=== PATIENT | male | born 1950 | race Caucasian/White ===

== ENCOUNTER 2018-07-31 09:49 | Outpatient (CLI) | payer MEDICARE, SELFPAY ==
[2018-07-31 12:58] LABS: CREATININE 0.89 mg/dL (0.70-1.30); Glucose 107 mg/dL (70-100); Potassium 4.1 mmol/L (3.5-5.1)
[2018-08-01 08:52] LABS: PSA, Screening 1.3 ng/ml (0-4.5)
== END 2018-07-31 10:09 ==
PROVIDERS: PCP Family Medicine; Visit Provider Family Medicine
DX: E11.9 Type 2 diabetes mellitus without complications (principal); Z12.5 Encounter for screening for malignant neoplasm of prostate; I10 Essential (primary) hypertension
CPT/HCPCS: 36415; 82947; 84153; 82565; 84132

== ENCOUNTER 2018-10-04 12:13 | Outpatient (CLI) | payer MEDICARE, SELFPAY ==
--- NOTE | 2018-10-04 10:55 | DI.RAD_ITS ---
SYMPTOMS/DIAGNOSIS: RT HIP PAIN RIGHT HIP AND PELVIS: Two views were obtained. There is virtually complete loss of the cartilaginous joint space of the right hip with marked subchondral sclerosis and cyst formation and marked deformity of the acetabulum and femoral head. Prominent osteophyte formation noted. CONCLUSION: Severe DJD right hip. Left hip prosthesis noted in position.
== END 2018-10-04 12:33 ==
PROVIDERS: PCP Family Medicine; Visit Provider Orthopaedic Surgery
DX: M16.11 Unilateral primary osteoarthritis, right hip; Z96.642 Presence of left artificial hip joint; Z47.1 Aftercare following joint replacement surgery
CPT/HCPCS: 99212; 99213; 73502

== ENCOUNTER 2019-09-12 02:22 | Outpatient (CLI) | payer MEDICARE, SELFPAY ==
[2019-09-12 11:36] LABS: CREATININE 1.02 mg/dL (0.70-1.30); Calculated LDL 117 mg/dL; Cholesterol 181 mg/dL (<200); Glucose 101 mg/dL (74-106); HDL Cholesterol 30 mg/dL (40-60); Potassium 4.2 mmol/L (3.5-5.1); Triglyceride 174 mg/dL (<150)
== END 2019-09-12 02:42 ==
PROVIDERS: PCP Family Medicine; Visit Provider Family Medicine
DX: I10 Essential (primary) hypertension (principal); E74.39 Other disorders of intestinal carbohydrate absorption; E66.3 Overweight
CPT/HCPCS: 36415; 80061; 82947; 82565; 84132

== ENCOUNTER 2020-09-21 04:36 | Outpatient (CLI) | payer MEDICARE, SELFPAY ==
[2020-09-21 12:33] LABS: Glucose 119 mg/dL (74-106); Potassium 4.3 mmol/L (3.5-5.1)
== END 2020-09-21 04:56 ==
PROVIDERS: PCP Family Medicine; Visit Provider Family Medicine
DX: I10 Essential (primary) hypertension (principal); R73.9 Hyperglycemia, unspecified
CPT/HCPCS: 36415; 80061; 82947; 82565; 84132

== ENCOUNTER 2020-09-25 19:15 | Outpatient (REF) | payer MEDICARE, SELFPAY ==
[2020-09-25 19:36] LABS: Calculated LDL 119 mg/dL (<100); Cholesterol 204 mg/dL (<200); HDL Cholesterol 35 mg/dL (40-60); Triglyceride 250 mg/dL (<150)
== END 2020-09-25 19:16 | disposition home or self-care (01) ==
LOC: LBN 19:15
PROVIDERS: PCP Family Medicine; Visit Provider Family Medicine
DX: I10 Essential (primary) hypertension (principal); E78.5 Hyperlipidemia, unspecified
CPT/HCPCS: 80061

== ENCOUNTER → 2021-03-25 11:03 | Outpatient (BNVA) | payer MEDICARE, SELFPAY | PROVIDERS: PCP Family Medicine; Referring Provider Family Medicine; Visit Provider Student in an Organized Health Care Education/Training Program | DX: M25.551 Pain in right hip (principal); M16.11 Unilateral primary osteoarthritis, right hip | CPT/HCPCS: 99213 ==

== ENCOUNTER → 2021-05-31 12:50 | Outpatient (BNVA) | payer MEDICARE, SELFPAY | PROVIDERS: PCP Family Medicine; Referring Provider Family Medicine; Visit Provider Urology | DX: N50.89 Other specified disorders of the male genital organs (principal) | CPT/HCPCS: 99204; 99214 ==

== ENCOUNTER 2021-06-15 11:53 | Outpatient (CLI) | payer MEDICARE, SELFPAY ==
--- NOTE | 2021-06-15 11:00 | DI.RAD_ITS ---
Exam(s) XR HIP RT COMPLETE AP PELVIS EXAM: XR HIP RT COMPLETE AP PELVIS INDICATION: pre op R ROSETTA. COMPARISON: CR XR hip RT complete AP pelvis from 10/04/2018 TECHNIQUE: 2D digital imaging was performed. FINDINGS: There is severe narrowing of the superior right hip joint space. There is significant flattening of the femoral head. Subchondral cysts are noted on both sides of the joint. The findings have signif icantly worsened when compared the previous exam. The left total hip prosthesis is unremarkable and unchanged. IMPRESSION: End-stage degenerative changes of the right hip. DATA REPOSITORY: RADIATION DOSE DELIVERED:
== END 2021-06-15 11:54 | disposition home or self-care (01) ==
LOC: DIORS 11:53
PROVIDERS: PCP Family Medicine; Referring Provider Family Medicine; Visit Provider Physician Assistant
DX: M16.11 Unilateral primary osteoarthritis, right hip (principal); Z01.818 Encounter for other preprocedural examination
CPT/HCPCS: 73502

== ENCOUNTER 2021-06-21 02:17 | Outpatient (CLI) | payer MEDICARE, SELFPAY ==
[2021-06-21 12:03] LABS: Source Nasal/Nares
[2021-06-21 12:06] LABS: HCT 46.3 % (40.0-50.0); HGB 15.7 g/dL (13.5-17.5); MCH 29.9 pg (27.0-33.0); MCHC 33.9 % (32.0-36.0); MCV 88.2 fL (80-95); MPV 9.5 fL (8.0-11.0); Platelet Count 252 10^3/uL (130-400); RBC 5.25 10^6/uL (4.36-5.78); RDW 12.9 % (11.8-14.1); RDW-SD 41.7 fL; WBC 8.36 10^3/uL (4.4-10.8)
[2021-06-21 13:01] LABS: Anion Gap 9.7 mmol/L (3-11); BUN 24 mg/dL (7-18); CO2 26.3 mmol/L (21.0-32.0); CREATININE 1.1 mg/dL (0.70-1.30); Calcium 10.5 mg/dL (8.5-10.1); Chloride 108 mmol/L (98-107); Glucose 104 mg/dL (74-106); Sodium 144 mmol/L (136-145)
[2021-06-21 20:34] LABS: COVID-19 PCR Negative (Negative)
== END 2021-06-21 02:18 | disposition home or self-care (01) ==
LOC: LBO 02:17
PROVIDERS: PCP Family Medicine; Visit Provider Student in an Organized Health Care Education/Training Program
DX: Z20.822 Contact with and (suspected) exposure to COVID-19 (principal); M16.11 Unilateral primary osteoarthritis, right hip; Z01.818 Encounter for other preprocedural examination
CPT/HCPCS: 36415; 80048; 85027; 86850; 86900; 86901; 87635

== ENCOUNTER 2021-06-22 07:33 | Day surgery (SDC) | payer MEDICARE, SELFPAY ==
[2021-06-22] VITALS (10 sets, daily range): BP systolic 97–168; BP diastolic 50–95; PULSE 54–81; RESP 12–19; TEMP 36.1–36.6; O2SAT 93–97; BMI 35.9
--- NOTE | 2021-06-22 05:29 | ANES.PREOP_ITS ---
General Info Date of Service Date Performed: 06/22/21 Height: 5 ft 10.75 in Weight: 116.12 kg Body Mass Index (BMI): 35.9 Surgical Procedure: Operation Date: 06/22/21 09:05 Proposed Procedures Side Surgeon p Hip Total Hip Anterior Right Andriy Sorenson MD Meds Allergies and Home Medications Allergies Allergy/AdvReac Type Severity Reaction Status Date / Time hydrochlorothiazide AdvReac Intermediate low Verified 06/22/21 07:55 sodium; faint Home Medication Medication Instructions Recorded salmon oil-omega-3 fatty acids 1 ea PO DAILY 01/17/13 [[place] Oil 1,000 Mg Softgel] dimenhydrinate [Dramamine] 25 - 50 mg PO PRN PRN 07/01/13 loratadine 10 mg PO PRN tab-cap 07/01/15 garlic 2 cap PO DAILY cap 07/25/18 amlodipine 5 mg tablet 5 mg PO BID #180 tab-cap 08/04/20 lisinopril 40 mg tablet 40 mg PO DAILY #90 tab-cap 08/04/20 acetaminophen 500 mg PO Q6H PRN #60 tab 06/22/21 aspirin 81 mg PO BID 30 Days #60 tab 06/22/21 celecoxib [Celebrex] 200 mg PO BID #30 cap 06/22/21 docusate sodium [Colace] 100 mg PO BID #30 cap 06/22/21 oxycodone 5 mg PO Q6H PRN #12 tab 06/22/21 pantoprazole 40 mg PO DAILY 30 Days #30 tab 06/22/21 Current Visit Medications: Current Medications Generic Name Dose Route Start Last Admin Trade Name Freq PRN Reason Stop Dose Admin Acetaminophen 1,000 mg 06/22/21 06:00 Acetaminophen 500 Mg Tab PO 06/22/21 16:00 PREOP GURU Celecoxib 400 mg 06/22/21 06:00 Celecoxib 200 Mg Cap PO 06/22/21 16:00 PREOP GURU Tranexamic Acid 1,000 mg/ 60 mls @ 360 mls/hr 06/22/21 06:00 Sodium Chloride IV 06/22/21 16:00 PREOP GURU Ringer's Solution 1,000 mls @ 80 mls/hr 06/22/21 06:00 IV 07/21/21 23:59 INFUSION GURU Cefazolin Sodium/Dextrose 2 gm in 50 mls @ 100 mls/hr 06/22/21 06:00 Ancef Duplex IVPB 07/21/21 23:59 PREOP GURU IV Miscellaneous Supplies 1 each 06/22/21 06:00 Iv Access IV 07/21/21 23:59 DIRECTED GURU Sodium Chloride 0 ml 06/22/21 06:00 Normal Saline Flush 10 Ml Syr IV 07/21/21 23:59 PRN PRN Sodium Chloride 0 ml 06/22/21 06:00 Normal Saline 10 Ml Vial IJ 07/21/21 23:59 DIRECTED PRN Sterile Water 0 ml 06/22/21 06:00 Water,Injection,Sterile 10 Ml Vial IJ 07/21/21 23:59 DIRECTED PRN PFSH Active Problems Active Problems: Problem Status Onset Code Status post arthroscopy of right knee Z98.890 Scrotal sac enlargement N50.89 Degenerative joint disease of right hip M16.11 Status post total hip replacement, left Z96.642 Overweight E66.3 Glucose intolerance E74.39 Vitreous floaters 06/03/13 H43.399 Shoulder pain M25.519 Right ureteral stone 07/17/17 N20.1 Polyp of colon K63.5 Migraine 07/20/04 G43.909 Bilateral kidney stones 07/17/17 N20.0 Allergic rhinitis J30.9 Benign hypertension I10 Hypercholesterolemia E78.0 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 05/17/13 T18.108A Medical History Medical History (Updated 06/22/21 @ 08:15 by Cortney Acevedo) H/O multiple concussions Hx of hydrocele left Internal hemorrhoids with other complication Patient denies diagnosis Pneumonia of left lower lobe due to infectious organism Rectal hemorrhage Patient denies diagnosis Surgical History Surgical History Appendectomy Colonoscopy - [facility] (11/02/11) DR. RODRIGUEZ Kidney Stone Extraction 07/20/17 RIGHT WITH STENTING PROCEDURES Achilles tendon tear x 2 with surgery Left Status post arthroscopy of right knee medial meniscus tear Tonsillectomy and adenoidectomy Total replacement of hip LEFT Tobacco Smoking/Tobacco Use Status: Never Passive smoking exposure: Yes Second hand exposure: Yes Alcohol Alcohol Intake: current Alcohol intake frequency: a few times a month Alcohol type: beer Substance Use Substance use: Never Substance use type: does not use Vital Signs and Lab Results Vital Signs Most Recent Vital Signs in EMR: Temp Pulse Resp BP Pulse Ox 36.6 C 81 18 168/95 H 96 06/22/21 08:08 06/22/21 08:08 06/22/21 08:08 06/22/21 08:08 06/22/21 08:08 Lab Results Blood Type / Crossmatch: Patient ABO/Rh A Positive 06/21/21 11:50 06/21/21 Antibody Screen NEGATIVE 06/21/21 11:50 06/21/21 Complete Blood Count: White Blood Count 8.36 10^3/uL (4.4-10.8) 06/21/21 11:50 06/21/21 Red Blood Count 5.25 10^6/uL (4.36-5.78) 06/21/21 11:50 06/21/21 Hemoglobin 15.7 g/dL (13.5-17.5) 06/21/21 11:50 06/21/21 Hematocrit 46.3 % (40.0-50.0) 06/21/21 11:50 06/21/21 Platelet Count 252 10^3/uL (130-400) 06/21/21 11:50 06/21/21 Complete Metabolic Panel: Sodium Level 144 mmol/L (136-145) 06/21/21 11:50 06/21/21 Potassium Level 4.0 mmol/L (3.5-5.1) 06/21/21 11:50 06/21/21 Chloride Level 108 mmol/L (98-107) H 06/21/21 11:50 06/21/21 Carbon Dioxide Level 26.3 mmol/L (21.0-32.0) 06/21/21 11:50 06/21/21 Blood Urea Nitrogen 24 mg/dL (7-18) H 06/21/21 11:50 06/21/21 Creatinine 1.1 mg/dL (0.70-1.30) 06/21/21 11:50 06/21/21 Estimated GFR/1.73 m2 >= 60.00 (mL/min/1.73m2) 06/21/21 11:50 06/21/21 Calcium Level 10.5 mg/dL (8.5-10.1) H 06/21/21 11:50 06/21/21 Glucose Level 104 mg/dL (74-106) 06/21/21 11:50 06/21/21 Liver Function Panel: No Data to Display Coagulation Panel: No Data to Display Cardiac Panel: No Data to Display Arterial Blood Gas: No Data to Display Venous Blood Gas: No Data to Display Pancreas Panel: No Data to Display Thyroid Panel: No Data to Display Infectious Disease: Coronavirus (COVID-19)(PCR) Negative (Negative) 06/21/21 11:23 06/21/21 Coronavirus 2019 Source Nasal/Nares 06/21/21 11:23 06/21/21 Blood Cultures: No Data to Display Toxicology Panel: No Data to Display Imaging and Studies Imaging and Studies Stress Test Summary: 2009: negative for ischemia. Anesthesia Assessment and Plan Anesthesia History Personal History: No History of Anesthesia Complications Family History: No Family History of Anesthesia Complications Exercise Tolerance Exercise Tolerance: Metabolic Equivalents>4 Cardiac & Pulmonary Exam Cardiac Exam: Normal S1/S2 Heart Sounds Pulmonary Exam: Clear Bilateral Breath Sounds Airway Exam Known Difficult Airway: No Mallampati Class: 2 Mouth Opening: Normal (> 3cm) Thyromental Distance: Greater than 3 cm Neck Range of Motion: Full ROM Neck Circumference: Thick Teeth Condition: Normal Dentition ASA Classification ASA Score: ASA 2 Emergency Case?: No NPO Status NPO Status: NPO Clears >2 hours, Solids >8 hours Anesthesia Plan Resuscitation Status: Full Code Anesthesia Technique: Spinal Anesthesia Airway Planned: Natural Airway Monitors Used: Standard Monitors Preoperative Comments:: 70 yo male for right ROSETTA. Sig PMHx: HTN (lisinopril/amlodipine), never smoker, occ EtOH. Previous Anes: LMA 5.
--- NOTE | 2021-06-22 07:16 | DSE_ITS ---
Documented by User: Justina Garibayxon 06/22/21 07:20 DS: Diagnosis Discharge Diagnosis (1) Degenerative joint disease of right hip: Status: Chronic Discharge Plan Disposition Patient Disposition: HOME Condition: Good Discharge Details Reason For Visit: Right hip DJD Attending Provider: Andriy Sorenson Primary Care Provider: Saul Carl Home Meds and New Rx's Prescriptions: New celecoxib [Celebrex] 200 mg capsule 200 mg PO BID Qty: 30 RF: 0 aspirin 81 mg tablet,delayed release (DR/EC) 81 mg PO BID 30 Days Qty: 60 RF: 0 acetaminophen 500 mg tablet 500 mg PO Q6H PRN (Reason: pain) Qty: 60 RF: 2 pantoprazole 40 mg tablet,delayed release (DR/EC) 40 mg PO DAILY 30 Days Qty: 30 RF: 0 docusate sodium [Colace] 100 mg capsule 100 mg PO BID Qty: 30 RF: 0 oxycodone 5 mg tablet 5 mg PO Q6H PRN (Reason: severe post-operative pain) Qty: 12 RF: 0 Continued [place] Oil-1000 1 EACH capsule 1 ea PO DAILY RF: 0 loratadine 10 MG tablet 10 mg PO PRN RF: 0 garlic capsule 2 cap PO DAILY RF: 0 amlodipine 5 mg tablet 5 mg PO BID Qty: 180 RF: 3 lisinopril 40 mg tablet 40 mg PO DAILY Qty: 90 RF: 4 Dramamine 25 MG tablet,chewable 25 - 50 mg PO PRN PRNRF: 0 Discontinued acetaminophen [Tylenol] 325 MG tablet 325 - 650 mg PO PRN RF: 0 ibuprofen [Motrin IB] 200 MG tablet 1 - 2 tab PO DAILY RF: 0 aspirin [Lo-Dose Aspirin] 81 mg tablet,delayed release (DR/EC) 162 mg PO DAILY RF: 0 Discharge Instructions Additional Instructions: Total Hip Discharge Instructions Activity: The most important activity is to walk. You should try to take short walks a few times a day. You have no restrictions on movement or positioning, but do not try to force what you do. You will find some stiffness and weakness with hip flexion (lifting your knee). Do not try to strengthen this too early, continue to practice walking and stairs and this will come. - Outpatient physical therapy can be helpful to help return you to a normal gait and improve your flexibility and strength. This can start around 2 weeks. For some patients, it?s not necessary. Usually this is determined at the time of discharge or at the first post-operative visit. - You should wear the CHRISTI hose on both legs for 2 weeks. Dressing: Keep the surgical dressing in place for at least one week. After the first week it may be removed and replace with light gauze and tape or nothing. It may get wet after 3 days but avoid soaking the dressing. If it gets wet, just lightly pat dry. It is important to always keep some gauze between skin folds, especially when you are sitting. Spend some time with the wound exposed when you are lying flat as the incision does wrinkle onto itself. Medications: - You should take Tylenol and an anti-inflammatory Celebrex as your primary pain control medications. If the Celebrex is too expensive or not covered, please call the office for another alternative (Advil/Ibuprofen or Naproxen/Aleve). - You have been prescribed a stronger pain medication Oxycodone for breakthrough pain, take as needed as prescribed. - You have also been prescribed a stomach acid reduction agent Pantoprozole to help reduce stomach acid and reflux. - You will be taking Aspirin 81mg twice a day for DVT prevention unless instructed otherwise. - If you have constipation you should take Colace (which has been prescribed) or Miralax (which may be purchased [id number]). It takes most people 3-4 days to have a bowel movement. Follow-up: 2 weeks If you have any acute concerns or questions, please do not hesitate to contact the office at [phone]. You may contact Dr. Sorenson with any questions after hours through the hospital at [phone] or on his cell phone at [phone]. Referrals: Andriy Sorenson MD [ [facility] STAFF PHYSICIAN] - Equipment/Supplies: Walker Activity:: Activity as Tolerated Remove Dressings/Wound Care:: Do Not Remove Shower/Bathe:: Cover Diet:: As Tolerated Discharge Orders Discharge Orders: Discharge Order (Routine); Ordered 06/22/21 Ordered By: Andriy Sorenson DS: Data Vitals/I&O Vitals and I&O: Intake & Output 06/21/21 06/21/21 06/22/21 11:59 23:59 11:59 Weight 116.12 kg 116.12 kg [facility] Medical History (Updated 06/22/21 @ 08:15 by Cortney Acevedo) H/O multiple concussions Hx of hydrocele left Internal hemorrhoids with other complication Patient denies diagnosis Pneumonia of left lower lobe due to infectious organism Rectal hemorrhage Patient denies diagnosis Surgical History Appendectomy [place] [facility] [place] DR. RODRIGUEZ Kidney Stone Extraction 07/20/17 RIGHT WITH STENTING PROCEDURES Achilles tendon tear x 2 with surgery Left Status post arthroscopy of right knee medial meniscus tear Tonsillectomy and adenoidectomy Total replacement of hip LEFT Family History (Updated 08/12/20 @ 09:15 by Lenka Ragsdale) Mother , AGE 79 Diabetes Essential hypertension Hyperlipidemia Stroke Skin cancer Father , AGE 82 Essential hypertension Heart disease Hyperlipidemia Stroke Sister No problems noted. Sister No problems noted. Brother Essential hypertension Brother Depression Alcohol abuse Brain cancer Stroke Son No problems noted. Son No problems noted. Daughter No problems noted. Daughter No problems noted. Daughter No problems noted. Daughter No problems noted. 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 animals: Yes Pets and animals: cat(s) Sexually active: Yes Do you think of yourself as: straight/heterosexual Current gender identity: male What is your relationship status?: How often do you talk on the phone with friends or family?: three or more times per week How often do you get together with friends or relatives?: twice per week How often do you attend confucianism or episcopal services?: 4 or more times per year Do you belong to any clubs or organized social groups?: yes Panel score (0-1 are the most socially isolated patients): 4 What type of physical activity do you participate in: walking and weight lifting Duration: 45-60 minutes/day Frequency: daily Thelma/Gnosticist: Druze Special thelma needs: No Seatbelt use: always Drive intox or ride w/intox commercial relief driver: No Do you feel safe at home: Yes Do you feel safe in your relationship?: Yes Victim of physical abuse: No Victim of emotional abuse: No Victim of sexual abuse: No Would you like helpful sources: No Documented by User: Andriy Soernson MD 06/22/21 13:58 Date of service: 06/22/21 Time of Service: 13:57 Discharge Plan Disposition Patient Disposition: HOME Condition: Good Discharge Details Reason For Visit: Right hip DJD Attending Provider: Andriy Sorenson Primary Care Provider: Saul Carl Home Meds and New Rx's Prescriptions: New celecoxib [Celebrex] 200 mg capsule 200 mg PO BID Qty: 30 RF: 0 aspirin 81 mg tablet,delayed release (DR/EC) 81 mg PO BID 30 Days Qty: 60 RF: 0 acetaminophen 500 mg tablet 500 mg PO Q6H PRN (Reason: pain) Qty: 60 RF: 2 pantoprazole 40 mg tablet,delayed release (DR/EC) 40 mg PO DAILY 30 Days Qty: 30 RF: 0 docusate sodium [Colace] 100 mg capsule 100 mg PO BID Qty: 30 RF: 0 oxycodone 5 mg tablet 5 mg PO Q6H PRN (Reason: severe post-operative pain) Qty: 12 RF: 0 Continued [place] Oil-1000 1 EACH capsule 1 ea PO DAILY RF: 0 loratadine 10 MG tablet 10 mg PO PRN RF: 0 garlic capsule 2 cap PO DAILY RF: 0 amlodipine 5 mg tablet 5 mg PO BID Qty: 180 RF: 3 lisinopril 40 mg tablet 40 mg PO DAILY Qty: 90 RF: 4 Dramamine 25 MG tablet,chewable 25 - 50 mg PO PRN PRNRF: 0 Discontinued acetaminophen [Tylenol] 325 MG tablet 325 - 650 mg PO PRN RF: 0 ibuprofen [Motrin IB] 200 MG tablet 1 - 2 tab PO DAILY RF: 0 aspirin [Lo-Dose Aspirin] 81 mg tablet,delayed release (DR/EC) 162 mg PO DAILY RF: 0 Discharge Instructions Additional Instructions: Total Hip Discharge Instructions Activity: The most important activity is to walk. You should try to take short walks a few times a day. You have no restrictions on movement or positioning, but do not try to force what you do. You will find some stiffness and weakness with hip flexion (lifting your knee). Do not try to strengthen this too early, continue to practice walking and stairs and this will come. - Outpatient physical therapy can be helpful to help return you to a normal gait and improve your flexibility and strength. This can start around 2 weeks. For some patients, it?s not necessary. Usually this is determined at the time of discharge or at the first post-operative visit. - You should wear the CHRISTI hose on both legs for 2 weeks. Dressing: Keep the surgical dressing in place for at least one week. After the first week it may be removed and replace with light gauze and tape or nothing. It may get wet after 3 days but avoid soaking the dressing. If it gets wet, just lightly pat dry. It is important to always keep some gauze between skin folds, especially when you are sitting. Spend some time with the wound exposed when you are lying flat as the incision does wrinkle onto itself. Medications: - You should take Tylenol and an anti-inflammatory Celebrex as your primary pain control medications. If the Celebrex is too expensive or not covered, please call the office for another alternative (Advil/Ibuprofen or Naproxen/Aleve). - You have been prescribed a stronger pain medication Oxycodone for breakthrough pain, take as needed as prescribed. - You have also been prescribed a stomach acid reduction agent Pantoprozole to help reduce stomach acid and reflux. - You will be taking Aspirin 81mg twice a day for DVT prevention unless instructed otherwise. - If you have constipation you should take Colace (which has been prescribed) or Miralax (which may be purchased [id number]). It takes most people 3-4 days to have a bowel movement. Follow-up: 2 weeks If you have any acute concerns or questions, please do not hesitate to contact the office at [phone]. You may contact Dr. Sorenson with any questions after hours through the hospital at [phone] or on his cell phone at [phone]. Referrals: Andriy Sorenson MD [ [facility] STAFF PHYSICIAN] - Equipment/Supplies: Walker Activity:: Activity as Tolerated Remove Dressings/Wound Care:: Do Not Remove Shower/Bathe:: Cover Diet:: As Tolerated Discharge Orders Discharge Orders: Discharge Order (Routine); Ordered 06/22/21 Ordered By: Andriy Sorenson DS: Summary Time Spent with Patient providing and/or coordinating discharge services: Less than 30 minutes Status at Discharge Functional status at discharge: uses cane/walker Overall status at discharge: patient is progressing back to baseline Mental Status: mental status grossly normal Speech and Movement: speech and movement normal Mood: congruent mood Affect: normal affect Exam Psych Mental Status: mental status grossly normal Speech and Movement: speech and movement normal Mood: congruent mood Affect: normal affect [facility] Medical History (Updated 06/22/21 @ 08:15 by Cortney Acevedo) H/O multiple concussions Hx of hydrocele left Internal hemorrhoids with other complication Patient denies diagnosis Pneumonia of left lower lobe due to infectious organism Rectal hemorrhage Patient denies diagnosis Surgical History Appendectomy Colonoscopy - [facility] (11/02/11) DR. RODRIGUEZ Kidney Stone Extraction 07/20/17 RIGHT WITH STENTING PROCEDURES Achilles tendon tear x 2 with surgery Left Status post arthroscopy of right knee medial meniscus tear Tonsillectomy and adenoidectomy Total replacement of hip LEFT Family History (Updated 08/12/20 @ 09:15 by Lenka Ragsdale) Mother , AGE 79 Diabetes Essential hypertension Hyperlipidemia Stroke Skin cancer Father , AGE 82 Essential hypertension Heart disease Hyperlipidemia Stroke Sister No problems noted. Sister No problems noted. Brother Essential hypertension Brother Depression Alcohol abuse Brain cancer Stroke Son No problems noted. Son No problems noted. Daughter No problems noted. Daughter No problems noted. Daughter No problems noted. Daughter No problems noted. 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 animals: Yes Pets and animals: cat(s) Sexually active: Yes Do you think of yourself as: straight/heterosexual Current gender identity: male What is your relationship status?: How often do you talk on the phone with friends or family?: three or more times per week How often do you get together with friends or relatives?: twice per week How often do you attend confucianism or episcopal services?: 4 or more times per year Do you belong to any clubs or organized social groups?: yes Panel score (0-1 are the most socially isolated patients): 4 What type of physical activity do you participate in: walking and weight lifting Duration: 45-60 minutes/day Frequency: daily Thelma/Gnosticist: Druze Special thelma needs: No Seatbelt use: always Drive intox or ride w/intox commercial relief driver: No Do you feel safe at home: Yes Do you feel safe in your relationship?: Yes Victim of physical abuse: No Victim of emotional abuse: No Victim of sexual abuse: No Would you like helpful sources: No
[2021-06-22] MEDS: Celecoxib 200 MG CAP 400 MG PO (08:06)
[2021-06-22] MEDS: Acetaminophen 500 MG TAB 1000 MG PO (08:06)
[2021-06-22] MEDS: Lactated Ringers 1,000 ML 80 ML IV (08:20)
--- NOTE | 2021-06-22 08:45 | RT.EKG_ITS ---
APPROVED REPORT Exam: Resting ECG Reason for Exam: preop eval, lightheaded Patient Location: O HR:67 bpm ECG Measurements Heart Rate 67 AXIS NM 181 P 18 QRSd 93 QRS -2 QT 417 T 56 QTc 441 Conclusion Sinus rhythm...normal P axis, V-rate 60- 99 Normal Electrocardiogram
[2021-06-22] MEDS: ceFAZolin 2 GM/50 ML BAG IVPB (09:23)
--- NOTE | 2021-06-22 09:25 | NUR.NOTE ---
0857: Call syeda maharaj. Nursing in room, pt lying on stretcher with eyes closed saying it the pain meds on an empty stomach. Spouse saying he needs help. Pt. diaphoretic and saying it started in his eyes. Vitals taken: BP 98/58, HR 52. HOB lowered, cool clothes and air provided. Pt. asked to open eyes, reports everything is clear and he does not feel dizzy. Pt. stating i dont have any pain. Ronaldo Joyce CRNA, in room. 3 lead applied. 12 lead EKG ordered. 0855: vitals: BP 114/75, HR 65, 98%, pt. reports he is feeling better. EKG done by Cortez ACEVEDO. Ronaldo Joyce CRNA in room. Per [employer]ACHINE TENDER EKG is good. aware and okay with proceeding with surgery. 0905: Vitals: BP 130/72, Hr 70, 98%. Pt. wiped down with warm clothes and changed out of sweaty gown. Pt. states he feels better. Pt. taken to OR.Nursing Note:
[2021-06-22] MEDS: Bupivacaine 0.25% Pres-Free 30 ML VIAL (09:58)
[2021-06-22] MEDS: Ketorolac 30 MG/ML VIAL (09:59)
--- NOTE | 2021-06-22 10:45 | DI.RAD_ITS ---
Exam(s) XR HIP RT IN OR EXAM: XR HIP RT IN OR CLINICAL HISTORY: djd right hip TECHNIQUE: 2D and realtime digital imaging was performed. COMPARISON: No exams were available for comparison FINDINGS: C-arm fluoroscopy was utilized by Dr. Sorenson during placement of right hip prosthesis. Hard copy s how femoral and acetabular components in good position. IMPRESSION: RADIATION DOSE DELIVERED: nadine Santos=6.3 mGy
--- NOTE | 2021-06-22 11:03 | W.PM.OP ---
Date of service: 06/22/21 Time of Service: 11:03 Operative Note Operative Note DATE OF PROCEDURE: 06/22/21 PRE-OP DIAGNOSIS: Right Hip Osteoarthritis POST-OP DIAGNOSIS: same PROCEDURE: Right Anterior Total Hip Arthroplasty with Intraoperative navigation SURGEON: Andriy Sorenson FACULTY CRIMINAL JUSTICE: Justina Chacon ANESTHESIA TYPE: Spinal Refer to Anesthesia Record ESTIMATED BLOOD LOSS: 250 PATHOLOGY: none sent TOURNIQUET TIME: 0 COMPLICATIONS: None Patient was transported to: PACU Patient's condition: stable Implants: 1. Depuy Datto Acetabular Component, 56mm 2. Depuy Acetabular Liner, 40l99ar 3. Depuy Corail Standard Collared Femoral Stem, Size 13 4. Depuy Altrx Ceramic Femoral Head, Size 36+8.5mm Indications: I have seen Abhijit in clinic for symptoms of hip arthritis, confirmed with radiographic findings. He has exhausted nonoperative methods and was having significant limitations in daily function and desired better function and less pain. I discussed the technical details of a hip replacement. I explained the risks of the procedure to include, but not limited to, bleeding, infection, pain, stiffness, fracture, damage to nerves and vessels, damage to muscles and tendons, loosening, instability, leg length inequality, need for repeat procedure, blood clot and cardiopulmonary demise. Despite these risks, Abhijit elected to proceed. Findings: There was significant signs of arthritis throughout the hip with femoral neck osteophytes and femoral head deformity. Procedure Description: Abhijit was greeted in the preoperative holding area where the correct side was identified and marked. The consent was reviewed with the patient and signed. The history and physical was updated. All questions were answered. Abhijit was taken back to the operating room. A spinal anesthestic was then administered. The feet were wrapped with cast padding and Coban and then placed into the boot liners and then into the boots. Care was taken to protect the skin and make sure the heels were fully down and the boots were stable. The patient was then positioned onto the HANA table. Both legs were held in a neutral position. SCDs were applied. The patient was then slid down onto a peroneal post. Prophylactic antibiotics in the form of Cefazolin were administered. 1g of Tranxemic Acid was given intravenously within 30 minutes of incision. The right leg was then prepped with Chloraprep and draped in a standard fashion. A second prep with Chloraprep was performed prior to placement of a shower-curtain type drape with Iodine impregnated skin protection. A timeout to confirm correct identity, side and site, procedure, allergies, anesthesia, and medical concerns was performed. An obliquely oriented incision was made starting lateral to the ASIS and running distal over the Tensor Fascia Ashley (TFL) muscle belly toward the fibular head, approximately 10cm. The skin and soft tissue was dissected sharply, through Manuel?s fascia, and to the fascia of the TFL. With the fascia and superior border of the IT band identified, the fascia was incised with a new knife just above any perforators from the IT band. The TFL muscle belly was bluntly dissected away from the fascia and moved laterally. The fat between TFL and rectus was identified to ensure the dissection was not within the TFL. Blunt dissection created space between abductors and the capsule and retractor was placed over the lateral femoral neck. The fibers of the rectus femoris tendon were identified and these were freed from the anterior capsule. A second cobra retractor was placed around the medial femoral neck. The TFL was further retracted laterally to show the deep fascia. Careful dissection through this layer identified three main crossing vessels of the lateral femoral circumflex. These were cauterized in multiple locations and then cut without any noticeable bleeding. The TFL was further released bluntly from the deep fascia to expose anterior hip capsule and fat The Travis orthopaedic retractor was then placed beneath the TFL and against sartorius and medial soft tissues to protect and retract the soft tissues. A T-capsulotomy was then performed starting at the superior lateral acetabulum and moving distally to the intertrochanteric ridge. These capsular flaps were tagged with a No. 1 Ethibond and elevated from within. The capsular flaps were released to the shoulder of the lateral neck and to the lesser trochanter to give excellent visualization of the proximal femur. A neck osteotomy was performed using an oscillating saw based on preoperative templates after clearing away femoral neck osteophytes. This cut started in the shoulder and of the lateral neck and exited medially. The saw was at all times directed medially to avoid injury to the greater trochanter. Gross traction was applied to the leg and the osteotomy opened. The femoral head was removed with a corkscrew, making sure to protect the TFL on its exit. Traction was released after head removal. This was measured on the back table to determine the starting reamer size. The femoral head had notable deformity and complete loss of cartilage. Portions of the rectus obscuring visualization were minimally elevated off the superior acetabulum. An anterior retractor was placed over the anterior wall between capsule and labrum and attached to the Gripper retraction system. The femur was rotated to 90 degrees and medial capsule was fully released until the lesser trochanter was palpable and visible; the femur was returned to 30 degrees. A posterior retractor was placed similarly between capsule and labrum. This provided excellent visualization. The contents of the cotyloid fossa were removed with electrocautery and the labrum was removed with a knife. There was a notable floor osteophyte. There was significant chondromalacia of the superior acetabulum. Acetabular reaming began with a 53mm reamer. This first reaming was directed anterior to posterior and medial to get down to the true floor. This was inspected and reamed until the true floor was reached. The anterior retractor was then released and entry and exit was provided by traction on the capsular flaps. I then reamed sequentially up to a 56mm reamer where good fit was obtained. The larger reamers were oriented based on anatomical reference of the anterior and lateral hernández to ensure proper abduction and anteversion. Positioning and size was confirmed with the fluoroscopy. A 56mm Depuy Datto acetabular component was selected. The acetabulum was reamed around the periphery with the selected acetabular size to prevent a rim fit. The deep tissues were irrigated. The acetabular component was then impacted in a position of about 40-45 degrees of abduction and 15-20 degrees of anteversion, using the patient?s anatomy as the ultimate landmark. Fluoroscopy was used to confirm this. There was excellent folder taper operator of the acetabular component and the inserting handle was removed. The acetabular liner, Depuy [id number] polyethylene liner, was inserted and lined up with the tines of the acetabular component. There was no soft tissue interposition. The liner was then impacted into position and confirmed to be well-seated. A portion of the nikolai-articular cocktail was then injected around the acetabulum into the capsule and periosteum. This cocktail consisted of 50cc of 0.25% Bupivicaine and 20cc of Exparel and 30mg of Ketorolac. The leg was rotated to 120 degrees. Any remaining medial capsule was released until the lesser trochanter was easily palpable. A retractor was placed medially. The lateral capsule was further released into the shoulder to allow access to the greater trochanter. A Caban retractor was placed over the greater trochanter which allowed the trochanter to flip in front of the capsule for excellent exposure. The leg was brought down into maximal extension and 20 degrees of adduction while ensuring there was no impingement on the acetabulum. Any remnant capsule within the trochanter was released. Piriformis and obturator externis were identified and protected. There was excellent access to the proximal femur. The lateral neck remnant was removed with a rongeur. A blunt canal probe was used to identify the canal and trajectory for later broaching. A box osteotome initiated the broach course. A small curved rasp and a curved curette were used to work laterally. Broaching then began with a size 8 Corail broach. This was inserted manually around the trochanter and into the canal before mallet blows. The broach was seated to a few millimeters below the cut level based on the neck cut and the preoperative template. Sequential broaching was continued with the [employer] pneumatic broaching device until a tight fit was obtained with good rotational control of the femur. A trial standard neck was inserted along with a +5 trial head. The leg was brought out of extension and adduction and then reduced with traction and internal rotation. The leg was stable anteriorly in a position of 30 degrees of extension and 90 degrees of external rotation. Fluoroscopy was used to ensure there was no fracture and the stem was seated well. Leg lengths were checked with an AP pelvis and pelvic reference points. Bottlenose navigation system was used to confirm appropriate positioning and leg length and offset. This seemed to underrecreate the offset by a few millimeters, so I went up to the +8.5mm head option. Once content with the desired offset and leg lengths, the leg was brought back into extension, external rotation and adduction. The periosteum and surrounding tissue was injected with remaining portion of the nikolai-articular cocktail. The proximal femur was irrigated as well as the deep tissues. The Depuy Corail standard collared stem, size 13, was then manually inserted into the proximal femur making sure to control rotation. It was then malleted into position with light blows, giving breaks to allow bone expansion and decrease risk of fracture. The selected Depuy Altrx Ceramic Head, size 36+8.5mm, was then placed onto the clean and dry trunnion and secured with impaction onto the tapered fit. The leg was brought back out of extension and adduction and reduced with traction and internal rotation. Stability was confirmed with no shuck at 90 degrees of external rotation and 30 degrees of extension. No impingement through range of motion arc. Final x-ray images were obtained with fluoroscopy to confirm adequate positioning and no intraoperative fracture. The deep tissues were thoroughly irrigated with Irrisept chlorhexadine solution. The capsule was then reapproximated with the previously placed Ethibond sutures. The TFL fascia was finally closed with a No. 2 Stratafix, barbed suture. Deep tissues were then reapproximated with 0 Vicryl and a running 2-0 Vicryl. The skin was closed with a running 4-0 Monocryl in a subcuticular fashion. This was reinforced with skin glue. A Mepilex silver dressing was applied. At the end of the case, all counts were correct. Abhijit was transferred to the hospital bed without difficulty and suffering no apparent complication. Abhijit has a good prognosis. Physical therapy will start today and without restrictions, weight-bearing as tolerated. Aspirin 81mg BID will be used for DVT prophylaxis.
[2021-06-22] MEDS: Normal Saline 10 ML VIAL IJ (11:40)
[2021-06-22] MEDS: HYDROmorphone 2 MG/ML VIAL IVP (11:40)
--- NOTE | 2021-06-22 12:15 | W.ANESPOSTOP ---
Postoperative Evaluation Date, Time and Location Date Performed: 06/22/21 Time Performed: 12:15 Patient Location: PACU Vital Signs Most Recent Imported Vital Signs: Most Recent Vital Signs Temp Pulse Resp BP Pulse Ox 36.5 C 55 L 12 101/83 96 06/22/21 12:00 06/22/21 12:00 06/22/21 12:00 06/22/21 12:00 06/22/21 12:00 Pain Score Most Recent Pain Score: Most Recent Pain Score Pain Level [Right Hip] 3 06/22/21 07:59 Pain Level 4 06/22/21 12:00 Assessment Mental Status: Awake (Alert & Oriented to Patient Baseline) Airway and Respiratory Function: Patent airway with normal (patient baseline) respiratory exam Cardiovascular Function: Hemodynamically Stable Hydration Status: Adequately Hydrated Nausea & Vomiting: No Nausea or Vomiting Pain: Pt. Denies Any Pain Peripheral Nerve Block: Patient did not receive a nerve block Postoperative Comments:: Discussed the need to intubate as related to his post nasal drip/coughing.
--- NOTE | 2021-06-22 14:48 | IN_ITS ---
Date of service: 06/22/21 Time of Service: 14:00 PT Notes Visit Reasons: Right hip DJD Inpatient Physical Therapy Evaluation Date: 06/22/21 Referring Doctor: Andriy Sorenson PT Orders: PT CONSULT: Evaluate Precautions: Standard Patient Profile/Admitting Diagnosis: Orders received for this 70 year old male with history of OA. He underwent successful ROSETTA earlier today with delivery by anterior approach. Goals for today are to establish new baseline safety for home discharge today. He was a little pre syncope according to nursing upon recovery and in PACU. Appears to be doing well now, and is looking forward to home soon. PMHX: Medical History (Updated 06/15/21 @ 11:22 by Justina Chacon) Internal hemorrhoids with other complication Patient denies diagnosis Pneumonia of left lower lobe due to infectious organism Rectal hemorrhage Patient denies diagnosis Surgical History (Updated 06/15/21 @ 11:22 by Justina Chacon) Appendectomy Colonoscopy - MAC (11/02/11) DR. RODRIGUEZ Kidney Stone Extraction 07/20/17 RIGHT WITH STENTING PROCEDURES Achilles tendon tear x 2 with surgery Left Status post arthroscopy of right knee medial meniscus tear Tonsillectomy and adenoidectomy Total replacement of hip LEFT Social History/Home Situation: Patient lives with his in a single floor home. He does require two steps to enter the home Equipment Owned/DME: 2[employer] Subjective: Patient states he is feeling okay Objective: Patient sitting up in bed, no medical lines in place Mental Status: Well oriented and alert to person, place and time Pain: Minimal but a little foggy from the anesthesia ROM: Right Upper Extremity: WNL Left Upper Extremity: WNL Right Lower Extremity: WFL Left Lower Extremity: WFL Strength: Right Upper Extremity: 5/5 globally Left Upper Extremity: 5/5 globally Right Lower Extremity: 4+/5 globally Left Lower Extremity: 5/5 globally Bed Mobility/Transfers: Supervision Supine-sit: Supervision Sit-stand: Supervision Stand-sit: Supervision Gait: Patient ambulates up to 75 feet with 2WW and CGA He also stands to urinate in the toilet with CGA Patient negotiates 2 steps with appropriate gait pattern and single step strategy under CGA Balance: Static Sitting: Normal Dynamic Sitting: Good Static Standing: Good Dynamic Standing: Fair Special Tests: Mobility Limitations [facility] Basic Mobility Inpatient Short Form: Raw Score: 18 Standardized Score: 43 CMS Score: 46.58% Informed Consent/Education: Patient instructed in purpose of PT consult and plan of care. ASSESSMENT: Patient is a 70 year old male Admitted with R side ROSETTA Patient presents with the following impairment level findings: Ambulatory disfunction, small balance impairment. Pt will benefit from skilled therapy intervention in order to remedy their functional limitations and restore patient to a more appropriate and stable functional level. Impairments are contributing to the following functional limitations: AMPAC of 46.58% Patient is assessed as a Low complexity Initial Evaluation 60032 based on the following: History: see above Examination: see above Presentation: Stable Decision Making: Low based on AMPAC of 46.58% Plan of Care/Treatment Plan: No plan as this was a one time evaluation for safe discharge to home DISCHARGE RECOMMENDATIONS: To home once medically cleared for discharge TREATMENT CODE/TIME: 1400, 25 minutes [id number] Low complexity Initial evaulation [id number] Phoenix Boyd DPT
== END 2021-06-22 15:07 | disposition home or self-care (01) ==
PROVIDERS: PCP Family Medicine; Visit Provider Student in an Organized Health Care Education/Training Program
PROC: (CPT 27130; principal; 2021-06-22 08:45)
DX: M16.11 Unilateral primary osteoarthritis, right hip (principal); I10 Essential (primary) hypertension; E78.00 Pure hypercholesterolemia, unspecified; E66.3 Overweight; Z68.35 Body mass index [BMI] 35.0-35.9, adult
CPT/HCPCS: 27130; 20985; C1776; 97161; 73501; 93005; 93010; J0690; J1100; J1885; J2250; J2370; J2405

== ENCOUNTER 2021-07-05 10:57 | Outpatient (CLI) | payer MEDICARE, SELFPAY ==
--- NOTE | 2021-07-05 10:30 | DI.RAD_ITS ---
Exam(s) XR HIP RT COMPLETE AP PELVIS EXAM: XR HIP RT COMPLETE AP PELVIS CLINICAL HISTORY: 1st post op R ROSETTA. TECHNIQUE: 2D digital imaging was performed. COMPARISON: CR XR HIP RT COMPLETE AP PELVIS from 06/15/2021 FINDINGS: There has been interval placement of a right hip prosthesis appears to be in satisfactory position al ignment. Left hip prosthesis remains unchanged. No fracture seen. IMPRESSION: DATA REPOSITORY: RADIATION DOSE DELIVERED:
== END 2021-07-05 10:58 | disposition home or self-care (01) ==
LOC: DIORS 10:58
PROVIDERS: PCP Family Medicine; Referring Provider Family Medicine; Visit Provider Physician Assistant
DX: Z96.641 Presence of right artificial hip joint (principal); Z47.1 Aftercare following joint replacement surgery
CPT/HCPCS: 73502

== ENCOUNTER → 2021-08-05 11:17 | Outpatient (BNVA) | payer MEDICARE, SELFPAY | PROVIDERS: PCP Family Medicine; Referring Provider Family Medicine; Visit Provider Student in an Organized Health Care Education/Training Program | DX: Z47.1 Aftercare following joint replacement surgery (principal); Z96.641 Presence of right artificial hip joint ==

== ENCOUNTER → 2021-10-21 10:47 | Outpatient (BNVA) | payer MEDICARE, SELFPAY | PROVIDERS: PCP Family Medicine; Referring Provider Family Medicine; Visit Provider Nurse Practitioner Gerontology | DX: N43.3 Hydrocele, unspecified (principal) | CPT/HCPCS: 99214 ==

== ENCOUNTER 2021-10-29 03:29 | Outpatient (CLI) | payer MEDICARE, SELFPAY ==
[2021-10-29 11:55] LABS: Source Nasal/Nares
[2021-10-29 15:39] LABS: COVID-19 PCR Negative (Negative)
== END 2021-10-29 03:30 | disposition home or self-care (01) ==
LOC: LBO 03:30
PROVIDERS: Nurse Practitioner Gerontology; PCP Family Medicine; Visit Provider Urology
DX: Z20.822 Contact with and (suspected) exposure to COVID-19 (principal); Z01.818 Encounter for other preprocedural examination
CPT/HCPCS: 87635; U0005

== ENCOUNTER 2021-11-01 09:32 | Day surgery (SDC) | payer MEDICARE, SELFPAY ==
[2021-11-01] VITALS (9 sets, daily range): BP systolic 81–152; BP diastolic 34–102; PULSE 56–74; RESP 13–19; TEMP 36.2–36.6; O2SAT 90–95; BMI 35.1
--- NOTE | 2021-11-01 10:24 | HPE_ITS ---
Date of service: 11/01/21 Time of Service: 10:24 Assessment and Plan Assessment and plan (1) Scrotal sac enlargement: Status: Acute (2) Hx of hydrocele: Assessment and plan: Since the spermatocele has been symptomatic, we will move forward with a left spermatocelectomy History of Present Illness History of Present Illness Chief Complaint: Left hydrocele Narrative: Abhijit is a 71 y/o male with hx of left hydrocele. He notes the area was initially seen approximately over a year ago.? No specific trauma or injury that he can recall.? Patient has noted that the enlargement has slowly been growing.? He would state that the size is probably the size of a grapefruit at this time. He notes no pain or discomfort.? He however is finding it to be irritative with intercourse and more annoying with his quality of life.? There is no change to his LUTS with this enlargement of his hydrocele. He notes that he has done his research on hydrocelectomy and at this point he is interested in pursuing the surgical procedure. Review of Systems Review of Systems Narrative: No fevers or chills Allergic rhinitis. No vision change or dysphasia No diabetes or thyroid No shortness of breath, cough or hemoptysis No chest pain or palpitations No nausea, vomiting, hepatitis, ulcers, jaundice No seizures, strokes or peripheral neuropathy No bleeding disorders or anemia No gout PFSH All Active Problems COVID-19 (Acute ~09/10/21) History of total right hip replacement (Acute 06/22/21) Benign hypertension (Chronic) Hypercholesterolemia (Chronic) 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 (Acute 05/17/13) EGD with foreign body retrival by Dr. Borjas on 05-17-2013. Allergic rhinitis (Acute) Bilateral kidney stones (Acute 07/17/17) Migraine (Acute 07/20/04) Patient denies diagnosis Polyp of colon (Acute) 11/02/11 DR. RODRIGUEZ; 1 TUBULAR ADENOMA AND 1 HYPER PLASTIC POLYP Right ureteral stone (Acute 07/17/17) Shoulder pain (Acute) bilateral shoulder separation Vitreous floaters (Acute 06/03/13) Glucose intolerance (Chronic) Patient denies diagnosis Overweight (Chronic) pt encouraged to lose weight with attention to diet and exercise Scrotal sac enlargement (Acute) Medical History H/O multiple concussions Hx of hydrocele left Internal hemorrhoids with other complication Patient denies diagnosis Pneumonia of left lower lobe due to infectious organism Rectal hemorrhage Patient denies diagnosis Surgical History Appendectomy Colonoscopy - MAC (11/02/11) DR. RODRIGUEZ Kidney Stone Extraction 07/20/17 RIGHT WITH STENTING PROCEDURES Achilles tendon tear x 2 with surgery Left Status post arthroscopy of right knee medial meniscus tear Status post total hip replacement, left DOS: 09/2007 Dr. Church Tonsillectomy and adenoidectomy Total replacement of hip LEFT Family History (Updated 08/12/20 @ 09:15 by Lenka Ragsdale) Mother , AGE 79 Diabetes Essential hypertension Hyperlipidemia Stroke Skin cancer Father , AGE 82 Essential hypertension Heart disease Hyperlipidemia Stroke Sister No problems noted. Sister No problems noted. Brother Essential hypertension Brother Depression Alcohol abuse Brain cancer Stroke Son No problems noted. Son No problems noted. Daughter No problems noted. Daughter No problems noted. Daughter No problems noted. Daughter No problems noted. 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 Pets and animals: Yes Pets and animals: cat(s) Sexually active: Yes Do you think of yourself as: straight/heterosexual Current gender identity: male What is your relationship status?: How often do you talk on the phone with friends or family?: three or more times per week How often do you get together with friends or relatives?: twice per week How often do you attend caodaism or episcopalian services?: 4 or more times per year Do you belong to any clubs or organized social groups?: yes Panel score (0-1 are the most socially isolated patients): 4 What type of physical activity do you participate in: walking and weight lifting Duration: 45-60 minutes/day Frequency: daily Thelma/Cheondoism: Temple Special thelma needs: No Seatbelt use: always Drive intox or ride w/intox furniture 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: No Victim of physical abuse: No Victim of emotional abuse: No Victim of sexual abuse: No Would you like helpful sources: No Meds Allergies and Home Medications Allergies Allergy/AdvReac Type Severity Reaction Status Date / Time hydrochlorothiazide AdvReac Intermediate low Verified 11/01/21 10:04 sodium; faint Home Medications Medication Instructions Recorded Confirmed Type salmon oil-omega-3 fatty acids 1 ea PO DAILY 01/17/13 11/01/21 History 1,000 mg-200 mg capsule ([place] Oil-1000) dimenhydrinate 25 mg chewable 25 - 50 mg PO PRN PRN 07/01/13 11/01/21 History tablet (Dramamine) loratadine 10 mg tablet 10 mg PO PRN tab-cap 07/01/15 11/01/21 History garlic 2 cap PO DAILY cap 07/25/18 11/01/21 History acetaminophen 500 mg tablet 500 mg PO Q6H PRN #60 tab 06/22/21 11/01/21 Rx lisinopril 40 mg tablet 40 mg PO DAILY #90 tab-cap 09/03/21 11/01/21 Rx amlodipine 5 mg tablet 5 mg PO BID #180 tab-cap 10/15/21 11/01/21 Rx Exam Const General: cooperative Nutritional Appearance: overweight Neck Neck: supple Resp Effort & Inspection: normal respiratory effort Auscultation: clear to auscultation bilaterally Cardio Rate: regular rate Rhythm: regular rhythm GI Palpation: soft and no masses Scrotum: hydrocele Neuro General: patient alert, patient awake and patient oriented x3
--- NOTE | 2021-11-01 10:28 | W.ANESPRE ---
General Info Date of Service Date Performed: 11/01/21 Height: 5 ft 10.75 in Weight: 113.398 kg Body Mass Index (BMI): 35.1 Surgical Procedure: Operation Date: 11/01/21 10:55 Proposed Procedure Side Surgeon p Hydrocelectomy Left Juan Antonio Degroot MD Meds Allergies and Home Medications Allergies Allergy/AdvReac Type Severity Reaction Status Date / Time hydrochlorothiazide AdvReac Intermediate low Verified 11/01/21 10:04 sodium; faint Home Medication Medication Instructions Recorded salmon oil-omega-3 fatty acids 1 ea PO DAILY 01/17/13 1,000 mg-200 mg capsule ([place] Oil-1000) dimenhydrinate 25 mg chewable 25 - 50 mg PO PRN PRN 07/01/13 tablet (Dramamine) loratadine 10 mg tablet 10 mg PO PRN tab-cap 07/01/15 garlic 2 cap PO DAILY cap 07/25/18 acetaminophen 500 mg tablet 500 mg PO Q6H PRN #60 tab 06/22/21 lisinopril 40 mg tablet 40 mg PO DAILY #90 tab-cap 09/03/21 amlodipine 5 mg tablet 5 mg PO BID #180 tab-cap 10/15/21 Current Visit Medications: Current Medications Generic Name Dose Route Start Last Admin Trade Name Freq PRN Reason Stop Dose Admin Ringer's Solution 1,000 mls @ 80 mls/hr 11/01/21 09:45 IV INFUSION GURU Sodium Chloride 500 mls @ 0 mls/hr 11/01/21 09:37 Saline 500ml Bag IV PRN PRN As Directed Cefazolin Sodium/Dextrose 2 gm in 50 mls @ 100 mls/hr 11/01/21 09:45 Ancef Duplex IVPB 11/01/21 16:00 PREOP GURU IV Miscellaneous Supplies 1 each 11/01/21 09:45 Iv Access IV DIRECTED GURU Sodium Chloride 0 ml 11/01/21 09:37 Normal Saline Flush 10 Ml Syr IVP PRN PRN PFSH Active Problems Active Problems: Problem Status Onset Code COVID-19 ~09/10/21 U07.1 History of total right hip replacement 06/22/21 Z96.641 Benign hypertension I10 Hypercholesterolemia E78.0 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 05/17/13 T18.108A Allergic rhinitis J30.9 Bilateral kidney stones 07/17/17 N20.0 Migraine 11/30/04 G43.909 Polyp of colon K63.5 Right ureteral stone 07/17/17 N20.1 Shoulder pain M25.519 Vitreous floaters 06/03/13 H43.399 Glucose intolerance E74.39 Overweight E66.3 Scrotal sac enlargement N50.89 Medical History Medical History H/O multiple concussions Hx of hydrocele left Internal hemorrhoids with other complication Patient denies diagnosis Pneumonia of left lower lobe due to infectious organism Rectal hemorrhage Patient denies diagnosis Surgical History Surgical History Appendectomy Colonoscopy - MAC (11/02/11) DR. RODRIGUEZ Kidney Stone Extraction 07/20/17 RIGHT WITH STENTING PROCEDURES Achilles tendon tear x 2 with surgery Left Status post arthroscopy of right knee medial meniscus tear Status post total hip replacement, left DOS: 09/2007 Dr. Church Tonsillectomy and adenoidectomy Total replacement of hip LEFT Tobacco Smoking/Tobacco Use Status: Never Passive smoking exposure: Yes Second hand exposure: Yes Alcohol Alcohol Intake: current Alcohol intake frequency: a few times a month Alcohol type: beer Substance Use Substance use: Never Substance use type: does not use Details: alcohol: t-3, one beer Vital Signs and Lab Results Vital Signs Most Recent Vital Signs in EMR: Temp Pulse Resp BP Pulse Ox 36.2 C L 74 16 152/102 H 95 11/01/21 10:06 11/01/21 10:06 11/01/21 10:06 11/01/21 10:06 11/01/21 10:06 Lab Results Blood Type / Crossmatch: No Data to Display Complete Blood Count: No Data to Display Complete Metabolic Panel: No Data to Display Liver Function Panel: No Data to Display Coagulation Panel: No Data to Display Cardiac Panel: No Data to Display Arterial Blood Gas: No Data to Display Venous Blood Gas: No Data to Display Pancreas Panel: No Data to Display Thyroid Panel: No Data to Display Infectious Disease: Coronavirus (COVID-19)(PCR) Negative (Negative) 10/29/21 08:43 10/29/21 Coronavirus 2019 Source Nasal/Nares 10/29/21 08:43 10/29/21 Blood Cultures: No Data to Display Toxicology Panel: No Data to Display Imaging and Studies Imaging and Studies Study information below may be from another EMR and interpreted by another provider. Please see original notes in EMR for more complete details. EKG Summary: DATE/TIME OF SERVICE: 06/22/21902 : 1950PERFORMING LOCATION: [facility] APPROVED REPORT Exam: Resting ECG Reason for Exam: preop eval, lightheaded Patient Location: O HR:67 bpm ECG Measurements Heart Rate 67 AXIS AL 181 P 18 QRSd 93 QRS -2 QT 417 T56 QTc 441 Conclusion Sinus rhythm...normal P axis, V-rate 60- 99 Normal Electrocardiogram Stress Test Summary: 2008: negative for ischemia. Anesthesia Assessment and Plan Anesthesia History Personal History: No History of Anesthesia Complications Family History: No Family History of Anesthesia Complications Exercise Tolerance Exercise Tolerance: Metabolic Equivalents>4 Pertinent Negatives Pertinent Negatives: No Symptoms of GERD, No Major Cardiovascular Symptoms or Complaints, No Major Pulmonary Symptoms or Complaints and No History of CVA/TIA Cardiac & Pulmonary Exam Cardiac Exam: Normal S1/S2 Heart Sounds Pulmonary Exam: Clear Bilateral Breath Sounds Implantable Cardiac Device Does patient have a Pacemaker or an ICD?: No Airway Exam Known Difficult Airway: No Mallampati Class: 2 Mouth Opening: Normal (> 3cm) Thyromental Distance: Greater than 3 cm Neck Range of Motion: Full ROM Neck Circumference: Thick Teeth Condition: Normal Dentition and Loose or Chipped (Missing upper right, chipped teeth) ASA Classification ASA Score: ASA 3 Emergency Case?: No NPO Status NPO Status: NPO Clears >2 hours, Solids >8 hours Anesthesia Plan Resuscitation Status: Full Code Anesthesia Technique: General Anesthesia Airway Planned: LMA Monitors Used: Standard Monitors
[2021-11-01] MEDS: Lactated Ringers 1,000 ML 80 ML IV (10:42)
[2021-11-01] MEDS: ceFAZolin 2 GM/50 ML BAG IVPB (11:07)
[2021-11-01] MEDS: Bupivacaine 0.25% Pres-Free 30 ML VIAL (11:41)
[2021-11-01] MEDS: Bacitracin 30 GM TUBE (11:42)
--- NOTE | 2021-11-01 11:56 | W.PM.DSUDISC ---
Discharge Plan Disposition Patient Disposition: HOME Condition: Stable Discharge Details Reason For Visit: hydrocelectomy Attending Provider: Juan Antonio Degroot Primary Care Provider: Saul Carl Home Meds and New Rx's Prescriptions: New tramadol 50 mg tablet 50 mg PO Q6H PRN (Reason: pain) Qty: 12 0RF Rx Instructions: may take with tylenol and NSAIDs No Action [place] Oil-1000 1 EACH capsule 1 ea PO DAILY 0RF loratadine 10 MG tablet 10 mg PO PRN 0RF garlic capsule 2 cap PO DAILY 0RF lisinopril 40 mg tablet 40 mg PO DAILY Qty: 90 4RF amlodipine 5 mg tablet 5 mg PO BID Qty: 180 3RF Dramamine 25 MG tablet,chewable 25 - 50 mg PO PRN PRN0RF acetaminophen 500 mg tablet 500 mg PO Q6H PRN (Reason: pain) Qty: 60 2RF Discharge Instructions Additional Instructions: scrotal support ice pack to scrotum while awake (bag of frozen peas works well) followup appt 1 to 2 weeks may get dressing wet in AM and remove dressing prescription for Tramadol sent to pharmacy - may be used with tylenol and NSAIDs if needed Activity:: nodriving 1 week/no lifting over 20 pounds until F/U visit Remove Dressings/Wound Care:: 24 hours Shower/Bathe:: 24 hours Diet:: As Tolerated Discharge Orders Discharge Orders: Discharge Order (Routine); Ordered 11/01/21 Ordered By: Juan Antonio Degroot DS: Diagnosis Discharge Diagnosis (1) Scrotal sac enlargement: Status: Acute (2) Hx of hydrocele:
--- NOTE | 2021-11-01 12:02 | W.PM.OP ---
Date of service: 11/01/21 Time of Service: 12:02 Operative Note Operative Note PRE-OP DIAGNOSIS: left hydrocele POST-OP DIAGNOSIS: same PROCEDURE: Left hydrocelectomy SURGEON: Juan Antonio Degroot ANESTHESIA TYPE: General LMA/ETT Refer to Anesthesia Record ESTIMATED BLOOD LOSS: 20 PATHOLOGY: none sent COMPLICATIONS: None Patient was transported to: PACU Patient's condition: stable Implants: none Indications: Is a 71-year-old gentleman with a previous fine of a left hydrocele. Initially, the hydrocele was not symptomatic, so no treatment was offered. Over the past year, the mass has increased in size and has become much more symptomatic for this gentleman. He presents now for hydrocelectomy. Findings: Large left hydrocele containing @ 500 cc of clear yellow fluid Procedure Description: The patient was brought to the operating room on 11/01/2021. He was given a dose of preoperative IV antibiotics. After successful induction of general anesthesia, he was placed in the supine position. His genitalia was prepped and draped. A left transverse scrotal incision was made and was extended down through the subcutaneous tissue. The dartos muscle was divided sharply. The testis, still within the left tunica vaginalis, was then delivered into our incision. We utilized sharp and blunt dissection to dissect the surrounding tissue off of the anterior surface of the hydrocele sac. The sac was then opened anteriorly and approximately 500 cc of yellow clear fluid was obtained. The testis was then inspected. There was a very small keratin vincent identified. The surface of the testis appeared normal. The redundant hydrocele sac was then excised. The excision was done with the Bovie in the cut edges of the lung the hydrocele sac were cauterized. The edges of the hydrocele sac were then reapproximated behind the testis. We utilized 3-0 chromic running, locking suture for this portion of the procedure. A cord block was performed with quarter percent Marcaine without epinephrine. The testis was delivered back within the left hemiscrotum. The dartos muscle was reapproximated over the testis using a segment of running 3-0 chromic suture. The skin was closed with a subcuticular 4-0 Vicryl suture. Dermabond was applied to the suture line. We then applied a fluff dressing and a scrotal support. The patient tolerated this procedure with no complications. He was taken to the recovery room in stable condition.
[2021-11-01] MEDS: ePHEDrine 25 MG/5 ML Syringe IVP ×2 (12:24→12:31)
--- NOTE | 2021-11-01 12:47 | W.ANESPOSTOP ---
Postoperative Evaluation Date, Time and Location Date Performed: 11/01/21 Time Performed: 12:47 Patient Location: PACU Vital Signs Most Recent Imported Vital Signs: Most Recent Vital Signs Temp Pulse Resp BP Pulse Ox 36.5 C 60 19 102/49 L 93 11/01/21 12:45 11/01/21 12:45 11/01/21 12:45 11/01/21 12:45 11/01/21 12:45 Pain Score Most Recent Pain Score: Most Recent Pain Score Pain Level 0 11/01/21 12:45 Assessment Mental Status: Awake (Alert & Oriented to Patient Baseline) Airway and Respiratory Function: Patent airway with normal (patient baseline) respiratory exam Cardiovascular Function: Hemodynamically Stable Hydration Status: Adequately Hydrated Nausea & Vomiting: No Nausea or Vomiting Pain: Pain is tolerable per patient Peripheral Nerve Block: Patient did not receive a nerve block
[2021-11-01] MEDS: traMADol 50 MG TAB PO (13:45)
== END 2021-11-01 09:33 | disposition home or self-care (01) ==
PROVIDERS: PCP Family Medicine; Visit Provider Urology
PROC: (CPT 55040; principal; 2021-11-01 10:45)
DX: N43.2 Other hydrocele (principal); N50.89 Other specified disorders of the male genital organs; I10 Essential (primary) hypertension; E78.00 Pure hypercholesterolemia, unspecified
CPT/HCPCS: 55040; J0690; J1100; J1885; J2001; J2405

== ENCOUNTER → 2021-11-12 15:13 | Outpatient (BNVA) | payer MEDICARE, SELFPAY | PROVIDERS: PCP Family Medicine; Referring Provider Family Medicine; Visit Provider Urology | DX: N43.3 Hydrocele, unspecified (principal) ==

== ENCOUNTER 2022-06-23 10:32 | Outpatient (CLI) | payer MEDICARE, SELFPAY ==
--- NOTE | 2022-06-23 10:00 | DI.RAD_ITS ---
Exam(s) XR HIP RT AP LAT ONLY EXAM: XR HIP RT AP LAT ONLY CLINICAL HISTORY: ANNUAL F/U R ROSETTA TECHNIQUE: COMPARISON: CR XR HIP RT COMPLETE AP PELVIS from 07/05/2021 FINDINGS: Two views were obtained. There is a total hip joint replacement in position. The components appear well seated. No other significant bony abnormality seen. IMPRESSION: RADIATION DOSE DELIVERED: Total DLP
== END 2022-06-23 10:33 | disposition home or self-care (01) ==
LOC: DIORS 10:33
PROVIDERS: PCP Family Medicine; Referring Provider Family Medicine; Visit Provider Student in an Organized Health Care Education/Training Program
DX: Z96.641 Presence of right artificial hip joint (principal)
CPT/HCPCS: 99213; 73502

== ENCOUNTER 2022-07-20 03:41 | Outpatient (CLI) | payer MEDICARE, SELFPAY ==
[2022-07-20 11:53] LABS: Calculated LDL 112 mg/dL (<100); Cholesterol 182 mg/dL (<200); Glucose 99 mg/dL (74-106); HDL Cholesterol 37 mg/dL (40-60); Triglyceride 165 mg/dL (<150)
== END 2022-07-20 03:42 | disposition home or self-care (01) ==
LOC: LBO 03:41
PROVIDERS: PCP Family Medicine; Visit Provider Family Medicine
DX: E78.5 Hyperlipidemia, unspecified (principal); R73.9 Hyperglycemia, unspecified
CPT/HCPCS: 36415; 80061; 82947

== ENCOUNTER 2023-08-01 03:50 | Outpatient (CLI) | payer MEDICARE, SELFPAY ==
[2023-08-01 13:08] LABS: Anion Gap 8.7 mmol/L (3-11); BUN 19 mg/dL (7-18); CO2 27.3 mmol/L (21.0-32.0); CREATININE 1.2 mg/dL (0.70-1.30); Calcium 10.2 mg/dL (8.5-10.1); Calculated LDL 108 mg/dL (<100); Chloride 105 mmol/L (98-107); Cholesterol 187 mg/dL (<200); Estimated GFR 63.85 (mL/min/1.73m2); Glucose 111 mg/dL (74-106); HDL Cholesterol 35 mg/dL (40-60); Potassium 3.6 mmol/L (3.5-5.1); Sodium 141 mmol/L (136-145); Triglyceride 224 mg/dL (<150)
== END 2023-08-01 03:51 | disposition home or self-care (01) ==
LOC: LBO 03:50
PROVIDERS: PCP Family Medicine; Visit Provider Family Medicine
DX: E78.5 Hyperlipidemia, unspecified (principal); E87.1 Hypo-osmolality and hyponatremia
CPT/HCPCS: 36415; 80048; 80061

== ENCOUNTER 2024-08-16 01:56 | Outpatient (CLI) | payer MEDICARE, SELFPAY ==
--- OUTSIDE RECORDS SUMMARY | 2024-08-16 02:02 | XMS_ITS | Referral Summary ---
Author Organization [facility] Address [address] [place] [address] Care Team Providers Care Drain Tiler Name Role Phone Chuck Osorio MD Primary Care Provider Unavail able Social History Tobacco Use Types Packs/Day Years Used Date Smoking Tobacco: Never Assessed Sex and Gender Information Value Date Recorded Sex Assigned at Not on file Legal Sex Male 18:55 EST Gender Identity Not on file Sexual Orientation Not on file Plan of Treatment Not on file Care Teams Drain Tiler Relationship Specialty Start Date End Date Chuck Osorio MD PCP - General 11/03/11
--- OUTSIDE RECORDS SUMMARY | 2024-08-16 02:02 | XMS_ITS | Clinical Summary ---
Author Organization [facility] Address [address] [place] [id number] Care Team Providers Care Service Transformer Repair Supervisor Name Role Phone Chuck Osorio MD Primary Care Provider Unavail able Social History Tobacco Use Types Packs/Day Years Used Date Smoking Tobacco: Never Assessed Sex and Gender Information Value Date Recorded Sex Assigned at Not on file Legal Sex Male 18:55 EST Gender Identity Not on file Sexual Orientation Not on file Plan of Treatment Health Maintenance Due Date Last Done Comments Hepatitis C Screen 1950 Fall Risk Screening 2014 COVID-19 Vaccine (2023- season) 2024 RSV Immunization ( o r 60+ Years) (1 - 1-dose 75+ series) 2024 Care Teams Service Transformer Repair Supervisor Relationship Specialty Start Date End Date Chuck Osorio MD PCP - General 11/03/11
--- OUTSIDE RECORDS SUMMARY | 2024-08-16 02:02 | XMS_ITS | Encounter Summary ---
Author Organization [facility] Address [address] [place] [address] Care Team Providers Care Trial Mgr Name Role Phone Unknown, Provider Primary Care Provider Unava ilable Encounter Details Date Type Department Care Team (Late st Contact Info) Description 11/02/2011 Results Only [facility] - [facility] [place] [address], [place] [id number] Qasim Kelly MD [address] [place] [address] Social History Tobacco Use Types Packs/Day Years Used Date Smoking Tobacco: Never Assessed Sex and Gender Information Value Date Recorded Sex Assigned at Not on file Legal Sex Male 18:55 EST Gender Identity Not on file Sexual Orientation Not on file documented as of this encounter Plan of Treatment Not on file documented as of this encounter Procedures Procedure Name Priority Date/Time Associated Diagnosis Comments SURGICAL PATHOLOGY Routine 11/02/2011 0:00 EDT documented in this encounter Results * SURGICAL PATHOLOGY (11/02/2011 0:00 EDT) Pathology Report: SURGICAL PATHOLOGY REPORT Reports generated via electronic interface contain original data; however they are lacking the format of the original report. Caution should be taken when reading/interpreti ng unformatted reports. Name: ? TEQUILA SHAIKH ? Accession #: ? [id number] ? : ? 1950 (Age: 61) ??M ? Collect Date: ? 11/02/2011 ? Location: ? [facility] ? Receive Date: ? 11/02/2011 ? Provider: QASIM KELLY MD Copy to: BRIAN ARNETT MD ? Final Pathologic Diagnosis: A. ?Colon, cecum, polyp, biopsy: 1. ?Tubular adenoma. B. ?Colon, ascending, polyp, biopsy: 1. ?Hyperplastic polyp. ??See comment. Comment: ? Deeper sections have been evaluated. ??(Dr. Woodward)/jocelyn Document reviewed and electronically signed by: VICKIE MENDENHALL MD Report ??Date: 11/04/2011 15:42 By the signature above, the attending physician certifies that he/she has personally conducted a gross and/or microscopic examination of the described specimens and rendered or confirmed the above diagnosis. Specimen(s) Received: A. ?Cecal polyp (#1) B. ? Ascending colon polyp (#2) Clinical History: ? Rectal bleeding Gross Description: ? Received in formalin labelled Tequila Shaikh and #1 ??cecal polyp is a 0.5 x 0.3 x 0.2 cm light uriarte biopsy. The specimen is submitted intact as (A). Received in formalin labelled Tequila Shaikh and #2 ??ascending colon polyp is a 0.4 x 0.4 x 0.2 cm light uriarte biopsy. The specimen is submitted intact as (B). (Jamshid Pope)/[facility] End of Report [facility] 11/02/2011 11/02/2011 16: 29 EDT us Qasim Kelly MD PATHOLOGY ORDERABLES Final Resul t [facility] [address] [place] [address] documented in this encounter Visit Diagnoses Not on filedocumented in this encounter Care Teams Trial Mgr Relationship Specialty Start Date End Date Unknown, Provider, PCP - General 11/02/11 11/02/11 documented as of this encounter
[2024-08-16 11:37] LABS: Anion Gap 6.5 mmol/L (3-11); BUN 17 mg/dL (7-18); CO2 28.5 mmol/L (21.0-32.0); CREATININE 1.3 mg/dL (0.70-1.30); Calculated LDL 112 mg/dL (<100); Chloride 108 mmol/L (98-107); Cholesterol 191 mg/dL (<200); Estimated GFR 57.65 (mL/min/1.73m2); Glucose 153 mg/dL (74-106); HDL Cholesterol 39 mg/dL (40-60); Potassium 3.6 mmol/L (3.5-5.1); Sodium 143 mmol/L (136-145); Triglyceride 201 mg/dL (<150)
== END 2024-08-16 01:57 | disposition home or self-care (01) ==
LOC: LBO 01:56
PROVIDERS: PCP Family Medicine; Visit Provider Family Medicine
DX: E78.5 Hyperlipidemia, unspecified (principal); E87.1 Hypo-osmolality and hyponatremia
CPT/HCPCS: 36415; 80048; 80061

== ENCOUNTER 2024-09-03 09:26 | Outpatient (CLI) | payer MEDICARE, SELFPAY ==
--- NOTE | 2024-09-03 15:23 | DI.RAD_ITS ---
Exam(s) XR SHOULDER RT COMPLETE 2+V EXAM: XR SHOULDER RT COMPLETE 2+V CLINICAL HISTORY: rt shoulder pain; remote separation of AC joint, M25.519. TECHNIQUE: 2D digital imaging was performed of the right shoulder. Six images were obtained. AP, G rashey, Y-view and axillary views were obtained. COMPARISON: No exams were available for comparison FINDINGS: BONES: No acute fracture is present. No bony destructive lesion is seen. JOINTS: No dislocation present. There are [id number] degenerative changes seen at the acromiocl avicular joint. No evidence of an acromioclavicular joint separation is seen at this time. The chiara ohumeral joint is well maintained. SOFT TISSUE: Normal. IMPRESSION: Degenerative changes seen at the acromioclavicular joint. No evidence of an AC joint separation. DATA REPOSITORY: RADIATION DOSE DELIVERED:
== END 2024-09-03 09:46 ==
LOC: DI 09:31
PROVIDERS: PCP Family Medicine; Visit Provider Family Medicine
DX: M25.511 Pain in right shoulder (principal)
CPT/HCPCS: 73030

== ENCOUNTER 2024-09-17 03:12 | Outpatient (CLI) | payer MEDICARE, SELFPAY ==
[2024-09-17 16:16] LABS: Hemoglobin A1C 5.9 % (<5.7)
== END 2024-09-17 03:13 | disposition home or self-care (01) ==
LOC: LBO 03:12
PROVIDERS: PCP Family Medicine; Visit Provider Family Medicine
DX: R73.9 Hyperglycemia, unspecified (principal)
CPT/HCPCS: 36415; 83036

== ENCOUNTER → 2024-09-25 11:01 | Outpatient (BNVA) | payer MEDICARE, SELFPAY | PROVIDERS: PCP Family Medicine; Referring Provider Family Medicine; Visit Provider Student in an Organized Health Care Education/Training Program | DX: M12.811 Other specific arthropathies, not elsewhere classified, right shoulder (principal) | CPT/HCPCS: 99213 ==